=== PATIENT | female | born 1945 | race Caucasian/White ===

== ENCOUNTER 2016-04-12 10:15 | Emergency (ER) | payer MEDICARE, OTHER ==
[2016-04-12 10:30] VITALS: BP 114/52; PULSE 90; RESP 20; TEMP 99; O2SAT 97
[2016-04-12] MEDS ORDERED: FOSA70TA PO (10:38)
[2016-04-12] MEDS ORDERED: ESCI5TAB PO (10:38)
[2016-04-12] MEDS ORDERED: PHEN100C PO (10:38)
[2016-04-12] MEDS ORDERED: LISI-515 PO (10:38)
[2016-04-12] MEDS ORDERED: EVIS60TA PO (10:38)
[2016-04-12] MEDS ORDERED: ATOR10TA15 PO (10:38)
[2016-04-12] MEDS ORDERED: LORazepam 2 MG/ML VIAL IV PUSH ONE (10:45)
--- NOTE | 2016-04-12 10:55 | PD ---
HPI . Weakness and inability to ambulate Chief Complaint: Neuro Symptoms/ Deficits Time Seen by Provider: 10:27 Travel History International Travel<30 days: No Contact w/Intl Traveler<30days: No Traveled to known affect area: No History of Present Illness HPI The patient is brought in ambulatory by her with a chief complaint of the acute onset of weakness, inability to ambulate steadily, any visual deficit and some difficulty speaking. The symptoms have now resolved. Onset was about 8 AM upon awakening. She was last in the normal at about midnight. The patient is having difficulty describing her visual disturbance. She states that it definitely was not diplopia. The states that she described it as blurring earlier. The describes the gait disturbance as ataxia. He describes the speech difficulty as before finding her words. The further states that she was evaluated at an outside facility as couple of days ago for this. Her workup was negative. He has those records with him. The couple is currently traveling through our area. PFSH Past Medical History Diabetes: Yes Patient Takes Glucophage: No Hypertension: Yes Neurologic: Yes (BRAIN ANEURYSM) Seizures: Yes Past Surgical History Cardiac Surgery: Yes (PACEMAKER) Tonsillectomy: Yes Other Surgery: Yes (BRAIN SURGERY FOR ANEURYSM) Social History Alcohol Use: Yes (SOCAILLY) Tobacco Use: No Substance Use: No Allergies-Medications (Allergen,Severity, Reaction): Uncoded Allergies: MRI PRECATION (Adverse Reaction, Severe, MRI PRECAUTION, 04/12/16) PACEMAKER (UNKNOWN TYPE) ANEURYSM CLIPS Reported Meds & Prescriptions Reported Meds & Active Scripts Active Reported Atorvastatin (Atorvastatin Calcium) 80 Mg Tab 80 Mg PO DAILY Escitalopram (Escitalopram Oxalate) 5 Mg Tab 20 Mg PO DAILY Evista (Raloxifene HCl) 60 Mg Tab 60 PO DAILY Fosamax (Alendronate Sodium) 70 Mg Tab Unknown Dose PO Q7D Phenytoin Extended 100 Mg Cap 100 PO BID Lisinopril 20 Mg Tab 20 Mg PO DAILY Review of Systems Except as stated in HPI: all other systems reviewed are Neg General / Constitutional: No: Fever, Chills Eyes: Positive: Blurred Vision, No: Diploplia HENT: No: Headaches Cardiovascular: No: Chest Pain or Discomfort, Syncope Respiratory: No: Shortness of Breath Gastrointestinal: No: Nausea, Vomiting, Diarrhea Genitourinary: No: Urgency, Frequency, Dysuria Musculoskeletal: No: Myalgias, Arthralgias Skin: No Rash Neurologic: Positive: Weakness, Coordination Problem, Ataxia, No: Dizziness, Syncope, Focal Abnormalities, Headache, Paresthesia, Incontinence, Seizures, Sensory Disturbance Physical Exam Narrative GENERAL: Psychomotor agitation, anxiousness. SKIN: Warm and dry. She has vitiligo. HEAD: Atraumatic. Normocephalic. EYES: Pupils equal and round. Extraocular movements are intact. She does have horizontal nystagmus. ENT: No nasal bleeding or discharge. Mucous membranes pink and moist. NECK: Trachea midline. Neck is supple. CARDIOVASCULAR: Regular rate and rhythm. Heart sounds are normal. RESPIRATORY: No accessory muscle use. Lungs are clear with full air movement throughout. GASTROINTESTINAL: Abdomen soft, non-tender, nondistended. MUSCULOSKELETAL: No obvious deformities. No edema. NEUROLOGICAL: Awake and alert. No obvious cranial nerve deficits. Motor grossly within normal limits. Normal speech. She is having some trouble following commands such as [id number]. There is no ataxia with finger- nose-finger or [id number]. I have not seen her walk. PSYCHIATRIC: Appropriate mood and affect; insight and judgment normal. Data Data Last Documented VS Vital Signs Date Time Temp Pulse Resp B/P Pulse Ox O2 Delivery O2 Flow Rate FiO2 04/12/16 12:43 76 92/44 99 2 04/12/16 12:29 Nasal Cannula 04/12/16 10:30 99.0 20 Orders Lorazepam Inj (Ativan Inj) (04/12/16 10:45) Electrocardiogram (04/12/16 10:55) Complete Blood Count With Diff (04/12/16 10:55) Basic Metabolic Panel (Bmp) (04/12/16 10:55) Drug Screen, Random Urine (04/12/16 10:55) Urinalysis - C+S If Indicated (04/12/16 10:55) Ecg Monitoring (04/12/16 10:55) Iv Access Insert/Monitor (04/12/16 10:55) Oximetry (04/12/16 10:55) Cath For Specimen (04/12/16 10:55) Blood Glucose (04/12/16 10:55) Sodium Chloride 0.9% Flush (Ns Flush) (04/12/16 11:00) Labs Laboratory Tests Test 04/12/16 04/12/16 11:10 12:21 White Blood Count 4.6 TH/MM3 Red Blood Count 4.31 MIL/MM3 Hemoglobin 12.5 GM/DL Hematocrit 37.7 % Mean Corpuscular Volume 87.5 FL Mean Corpuscular Hemoglobin 29.0 PG Mean Corpuscular Hemoglobin 33.1 % Concent Red Cell Distribution Width 12.8 % Platelet Count 254 TH/MM3 Mean Platelet Volume 7.8 FL Neutrophils (%) (Auto) 68.5 % Lymphocytes (%) (Auto) 20.8 % Monocytes (%) (Auto) 8.0 % Eosinophils (%) (Auto) 1.9 % Basophils (%) (Auto) 0.8 % Neutrophils # (Auto) 3.1 TH/MM3 Lymphocytes # (Auto) 1.0 TH/MM3 Monocytes # (Auto) 0.4 TH/MM3 Eosinophils # (Auto) 0.1 TH/MM3 Basophils # (Auto) 0.0 TH/MM3 CBC Comment DIFF FINAL Differential Comment Sodium Level 143 MEQ/L Potassium Level 4.1 MEQ/L Chloride Level 105 MEQ/L Carbon Dioxide Level 30.2 MEQ/L Anion Gap 8 MEQ/L Blood Urea Nitrogen 14 MG/DL Creatinine 0.69 MG/DL Estimat Glomerular Filtration 85 ML/MIN Rate Random Glucose 113 MG/DL Calcium Level 8.4 MG/DL Urine Collection Type CATH Urine Color YELLOW Urine Turbidity SLIGHT Urine pH 6.0 Urine Specific [place] 1.009 Urine Protein NEG mg/dL Urine Glucose (UA) NEG mg/dL Urine Ketones NEG mg/dL Urine Occult Blood NEG Urine Nitrite NEG Urine Bilirubin NEG Urine Leukocyte Esterase NEG Urine Squamous Epithelial > 8 /hpf Cells Urine Transitional Epithelial 0-5 /hpf Cells Urine Amorphous Sediment MOD Microscopic Urinalysis Comment CATH-CULT NOT IND Urine Collection Time 1224 Urine Barbiturates Screen NEG Urine Amphetamines Screen NEG Urine Benzodiazepines Screen NEG MDM Medical Decision Making Medical Screen Exam Complete: Yes Emergency Medical Condition: Yes Medical Record Reviewed: Yes (currently, I have her discharge instructions from April 07. We are attempting to obtain the actual medical record. Her discharge instructions were for syncope) Interpretation(s) EKG shows a sinus rhythm with no ST segment elevation or depression. Differential Diagnosis Differential diagnosis of altered mental status includes but is not limited to infection, electrolyte abnormality, neurological event, intoxication Narrative Course Patient presents with visual disturbance, sleep disturbance and ataxia. I do not know how long these before get the records of the other hospital. Therefore , I am going to go ahead and order some basic labs and an MRI of her brain. CBC & BMP Diagram 04/12/16 11:10 We are unable to do an MRI here. She has had previous surgery for an aneurysm in her brain and she has a pacemaker. I have not yet received records from the other facility. She will be instructed to follow-up with her primary care physician when she returns home for further evaluation. Diagnosis Primary Impression: Weakness Additional Instructions: Follow-up with your doctor when you return home Disposition: 01 DISCHARGE HOME Condition: Stable Lilia Schultz MD Apr 12, 2016 10:55
[2016-04-12] MEDS ORDERED: SODIUM CHLORIDE 0.9% FLUSH 5 ML FLUSH IVF PRN (11:00)
[2016-04-12] MEDS ORDERED: ATOR1TAB18 PO (11:01)
[2016-04-12 11:24] LABS: AUTOMATED NEUTROPHIL # 3.1 TH/MM3 (1.8-7.7); BASOPHIL % 0.8 % (0.0-2.0); EOSINOPHIL # 0.1 TH/MM3 (0-0.4); EOSINOPHIL % 1.9 % (0.0-4.0); HEMATOCRIT 37.7 % (35.0-46.0); HEMO FLAGS DIFF FINAL; LYMPH % 20.8 % (9.0-44.0); MEAN CELL VOLUME 87.5 FL (80.0-100.0); MEAN CORPUSCULAR HGB CONC 33.1 % (32.0-36.0); NEUT % 68.5 % (16.0-70.0); PLATELET COUNT 254 TH/MM3 (150-450); RED BLOOD COUNT 4.31 MIL/MM3 (4.00-5.30); RED CELL DISTRIBUTION WIDTH 12.8 % (11.6-17.2); WHITE BLOOD COUNT 4.6 TH/MM3 (4.0-11.0)
[2016-04-12 11:33] LABS: POTASSIUM 4.1 MEQ/L (3.5-5.1)
[2016-04-12 11:35] VITALS: O2SAT 97
[2016-04-12 11:36] LABS: BICARBONATE 30.2 MEQ/L (21.0-32.0)
[2016-04-12 12:31] LABS: BLOOD, URINE NEG (NEG); GLUCOSE,URINE NEG (NEG); KETONE, URINE NEG (NEG); METHOD OF COLLECTION CATH; NITRITE,URINE NEG (NEG); URINE COLOR YELLOW (YELLW/STRAW)
[2016-04-12 12:37] LABS: COMMENT (UR) CATH-CULT NOT IND; COMMENT2 (UR) MUCOUS PRESENT; CULTURE IF INDICATED CATH CULTURE NOT IND; SQUAMOUS EPITHELIAL CELL URINE > 8 /hpf (0-5); TRANSITIONAL EPI CELLS, URINE 0-5 /hpf
[2016-04-12 12:43] VITALS: BP 92/44; PULSE 76; O2SAT 99
[2016-04-12 12:47] LABS: AMPHETAMINE, URINE NEG (NEG)
[2016-04-12 12:49] LABS: BARBITURATES, URINE NEG (NEG)
[2016-04-12 12:54] LABS: COCAINE, URINE NEG (NEG)
[2016-04-12 14:13] VITALS: BP 119/64
--- NOTE | 2016-04-12 16:35 | EKG ---
Date Performed: 04/12/2016 Time Performed: 11:11:22 PTAGE: 70 years EKG: Sinus rhythm Possible left atrial abnormality Borderline ECG NO PREVIOUS TRACING DOCTOR: Tan Jean Interpretating Date/Time 04/12/2016 16:32:24
== END 2016-04-12 14:14 | disposition home or self-care (01) ==
LOC: PHED 10:15
DX: R53.1 Weakness (principal); H53.9 Unspecified visual disturbance
CPT/HCPCS: 80048; 80307; 81001; 85025; 93005; 96374; 99285; J2060; P9612